=== PATIENT | female | born 1940 | race Caucasian/White ===

== ENCOUNTER → 2016-11-23 | Outpatient (CLI) | payer MEDICARE ==
[2016-11-23 11:48] LABS: ABSOLUTE BASOPHILS # (AUTO) 0.1 10^3/uL (0.0-0.2); ABSOLUTE EOSINOPHILS # (AUTO) 0.3 10^3/uL (0.0-0.6); ABSOLUTE MONOCYTES (AUTO) 0.7 10^3/uL (0.1-1.4); BASOPHILS % (AUTO) 1.1 % (0-2); EOSINOPHILS % (AUTO) 4.2 % (0-6); HEMOGLOBIN 14.2 g/dL (12.0-15.5); HGB HCT DIFFERENCE -0.4; MEAN CORPUSCULAR HEMOGLOBIN 31.6 pg (27.0-33.4); MEAN CORPUSCULAR HGB CONC 33.1 g/dL (32.0-36.0); MEAN CORPUSCULAR VOLUME 96 fl (80-97); MONOCYTES % (AUTO) 10.2 % (3-13); RED CELL DISTRIBUTION WIDTH 13.7 % (11.5-14.0); SEGMENTED NEUTROPHILS % (AUTO) 56.5 % (42-78)
[2016-11-23 12:27] LABS: ERYTHROCYTE SEDIMENTATION RATE 9 mm/hr (0-30)
== END ==
LOC: RAD 10:13
PROVIDERS: ATTEND Internal Medicine
DX: G44.1 Vascular headache, not elsewhere classified (principal); H57.12 Ocular pain, left eye
CPT/HCPCS: 36415; 82565; 85025; 85652; 86140

== ENCOUNTER → 2016-11-28 | Outpatient (CLI) | payer MEDICARE | LOC: RAD 10:23 | PROVIDERS: ATTEND Internal Medicine | DX: G44.1 Vascular headache, not elsewhere classified (principal); H57.12 Ocular pain, left eye | CPT/HCPCS: 70544; 70549 ==